=== PATIENT | male | born 1955 | race Caucasian/White ===

== ENCOUNTER 2017-04-30 15:23 | Emergency (ER) | payer OTHER ==
--- NOTE | 2017-04-30 16:34 | ED ---
General Adult HPI - General Chief complaint: Extremity Problem,Nontraumatic Stated complaint: Cyst on L foot Time Seen by Provider: 04/30/17 16:15 Source: patient, RN notes reviewed Mode of arrival: wheelchair Limitations: no limitations - History of Present Illness Initial comments: patient 61-year-old male significant past medical history for diabetes, who presents emergency room today with a chief complaint of possible infection to his left foot. He does admit that over the last 2 days noticed some increased redness irritation and pain to this area of the bottom of left foot. Patient also admits that he's had symptoms of possible scabies infection. He does admit that several months ago he had Procardia to a rash all over his body. He states he was treated with a cream. He states he talked his family doctor but repeated after 14 days with family doctor did not want to write another prescription for him. He states that the rash seems to come back now over the last several weeks. He states to his legs mostly and to a spot to his chest. Patient does admit that it somewhat itchy. He denies any other complaints associated symptoms. Patient denies any recent fever, chills, shortness of breath, chest pain, back pain, abdominal pain, nausea or vomiting, numbness or tingling, dysuria or hematuria, constipation or diarrhea, headaches or visual changes, or any other complaints. - Related Data Home Medications Medication Instructions Recorded Confirmed Insulin Glargine [Lantus] 15 unit SQ BID 04/30/17 04/30/17 Lisinopril [Prinivil] 20 mg PO 04/30/17 metFORMIN HCL [Glucophage] 500 mg PO DAILY 04/30/17 04/30/17 Previous Rx's Medication Instructions Recorded Cephalexin [Keflex] 500 mg PO Q12HR 10 Days 04/30/17 Permethrin 5% Cream [Elimite] 1 applic TOPICAL ONCE #1 tube 04/30/17 Allergies Allergy/AdvReac Type Severity Reaction Status Date / Time No Known Allergies Allergy Verified 04/30/17 16:59 Review of Systems ROS Statement: Those systems with pertinent positive or pertinent negative responses have been documented in the HPI. ROS Other: All systems not noted in ROS Statement are negative. Past Medical History Past Medical History: CVA/TIA, Diabetes Mellitus Additional Past Medical History / Comment(s): hep c. 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 Eye: Pupils are equal, round and reactive to light, extra-ocular movements are intact. No nystagmus. There is normal conjunctiva bilaterally. No signs of icterus. Ears, nose, mouth and throat: There are moist mucous membranes and no oral lesions. Neck: The neck is supple, there is no tenderness or JVD. Cardiovascular: There is a regular rate and rhythm. No murmur, rub or gallop is appreciated. Respiratory: Lungs are clear to auscultation, respirations are non-labored, breath sounds are equal. No wheezes, stridor, rales, or rhonchi. Musculoskeletal: Normal ROM, no tenderness. Strength 5/5. Sensation intact. Pulses equal bilaterally 2+. Neurological: A&O x 3. CN II-XII intact, There are no obvious motor or sensory deficits. Coordination appears grossly intact. Speech is normal. Skin: redness erythema to the bottom of the left foot measures approximately 2- 3 cm across. There is a callused area measuring approximately 1-2 cm across. There is no open wound. No lymphangitic streaking. Patient does have multiple excoriated lesions covering lower extremities. Does have a maculopapular type rash to the anterior chest wall. Psychiatric: Cooperative, appropriate mood & affect, normal judgment. Limitations: no limitations Course Vital Signs 04/30/17 15:44 Temperature 97.3 F L Pulse Rate 90 Respiratory 20 Rate Blood Pressure 136/83 O2 Sat by Pulse 97 Oximetry Medical Decision Making - Medical Decision Making Patient x-ray reviewed as negative. Results were discussed with the patient. Patient has the beginnings of a diabetic foot ulcer. There is no open wound. Is minor at this time and felt to be able to be treated with outpatient antibiotic. Patient strongly encouraged to follow-up with the family doctor as he states he is currently in between. He states he has been looking. He will be given on-call family physician. Patient does have his insulin with him that he is able to take his he's had multiple refills that he's been continuing to use. Patient is concerned about possible scabies. He states he used a permethrin cream in the past and he felt that there was improvement. Patient will be given a prescription that he may use. Advised to put application on from the head down to leave on for 8-10 hours and then wash off. Advised patient to repeat treatment in 7-10 days if there is any return. The patient is advised return if symptoms increase or worsen. Disposition Clinical Impression: Diabetic foot ulcer Disposition: HOME SELF-CARE Instructions: Diabetic Foot Ulcers (ED) Additional Instructions: Please follow-up family doctor as discussed over the next week. Please use antibiotic as prescribed. Please return to emergency room symptoms increase or worsen or for any other concerns. Prescriptions: Cephalexin [Keflex] 500 mg PO Q12HR 10 Days Permethrin 5% Cream [Elimite] 1 applic TOPICAL ONCE #1 tube Referrals: None,Stated [Primary Care Provider] - 1-2 days Hodan Ash MD [STAFF PHYSICIAN] - 1-2 days Time of Disposition: 17:17
--- NOTE | 2017-04-30 16:58 | XR ---
EXAMINATION TYPE: XR foot complete LT DATE OF EXAM: 04/30/2017 COMPARISON: NONE HISTORY: 61-year-old male complaining of pain from ulcer on the first digit. History of diabetes. TECHNIQUE: 3 views FINDINGS: There is hallux valgus deformity with bunion. Mild first MTP joint degenerative change. Type I access ory navicular. No discrete osseous erosions are seen. Small plantar calcaneal spur. No acute fracture , subluxation, or dislocation. IMPRESSION: Hallux valgus with bunion and mild first MTP joint osteoarthrosis. Small plantar calcaneal spur. No a cute osseous abnormality seen.
[2017-04-30 17:23] VITALS: BP 134/84; PULSE 84; RESP 18; TEMP 97.5
== END 2017-04-30 17:22 | disposition home or self-care (01) ==
LOC: EC 15:23
DX: E11.621 Type 2 diabetes mellitus with foot ulcer (principal); L97.529 Non-pressure chronic ulcer of other part of left foot with unspecified severity; R21 Rash and other nonspecific skin eruption; Z79.4 Long term (current) use of insulin; Z79.84 Long term (current) use of oral hypoglycemic drugs; Z79.899 Other long term (current) drug therapy
CPT/HCPCS: 99283